=== PATIENT | female | born 1995 | race Caucasian/White ===

== ENCOUNTER 2017-08-06 14:56 | Emergency (ER) | payer OTHER ==
[~2017-08-06 14:56] MED LIST: HYDR-4309 PO; PENI-24 PO
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
[2017-08-06] MEDS ORDERED: METHOCARBAMOL 500 MG TAB PO ONE (15:30)
[2017-08-06] MEDS ORDERED: IBUPROFEN 600 MG TAB PO ONE (15:30)
[2017-08-06 16:00] VITALS: BP 120/65
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
[2017-08-06] MEDS ORDERED: METH-543 PO (16:26)
== END 2017-08-06 16:00 | disposition home or self-care (01) ==
LOC: ER 15:14
DX: S16.1XXA Strain of muscle, fascia and tendon at neck level, initial encounter (principal); M62.830 Muscle spasm of back; M54.5 Low back pain; V89.2XXA Person injured in unspecified motor-vehicle accident, traffic, initial encounter
CPT/HCPCS: 72040; 72100; 81025; 99283

== ENCOUNTER 2018-11-29 21:34 | Emergency (ER) | payer OTHER ==
[~2018-11-29 21:34] MED LIST changes: -HYDR-4309 PO; +HYDR-653 PO; +METH-543 PO
[2018-11-29 21:36] VITALS: BP 122/78
--- NOTE | 2018-11-29 21:36 | ER Report ---
History and Physical Time Seen By MD: 21:32 HPI/ROS CHIEF COMPLAINT: Not feeling well 2 weeks, vomiting, rash dry heaves HISTORY OF PRESENT ILLNESS: 23-year-old female presents ambulatory to the ER not feeling well for 2 weeks. Tonight she vomited several times. She is taking spironolactone for acne prescribed by her director clinical applications. Patient notes some subjective fevers by feeling hot all the time. She notes no diarrhea or dysuria. Her last pressure. Is unsure. She did take a home test which was negative. [place] active and not using any sort of protection. Patient notes hyperventilation with vomiting and bilateral hand and foot numbness. Patient notes some chest pain and dizziness. She's not had actual syncope. REVIEW OF SYSTEMS: Respiratory: No cough, no dyspnea. Cardiovascular: No chest pain, no palpitations. Gastrointestinal: No vomiting, no abdominal pain. Musculoskeletal: No back pain. Allergies: Coded Allergies: No Known Drug Allergies (Unverified , 11/29/18) Home Meds Active Scripts Ondansetron Hcl (ZOFRAN) 4 Mg Tablet, 4 MG PO Q6H PRN for NAUSEA/VOMITING, #10 Prov:TAMIKO CORBETT DO 11/29/18 Discontinued Scripts Methocarbamol (ROBAXIN-750) 750 Mg Tablet, 1500 MG PO Q8H PRN for MUSCLE SPASMS, #28 TAB Prov:MALENA CHAMBERS V DO 08/06/17 Reviewed Nurses Notes: Yes Old Medical Records Reviewed: Yes Hx Smoking: No Hx Alcohol Use: Yes Constitutional Vital Sign - Last 24 Hours 11/29/18 11/29/18 11/29/18 11/29/18 21:36 22:04 22:19 22:34 Pulse ??? 84 82 B/P (MAP) 122/78 (93) Pulse Ox 71 96 98 Physical Exam General Appearance: The patient is alert, has no immediate need for airway protection and no current signs of toxicity. Vital signs stable, afebrile, pu lse ox normal HEENT: Pupils equal and round no injection. Oropharynx without redness or exudate, mucous. Membranes are moist Respiratory: Chest is non tender, lungs are clear to auscultation. No chest wall tenderness Cardiac: regular rate and rhythm, no murmur Gastrointestinal: Abdomen is soft and non tender, no masses, bowel sounds normal. Musculoskeletal: Neck: Neck is supple and non tender. No lymphadenopathy, no thyromegaly Extremities have full range of motion and are non tender. No edema, no calf tenderness Skin: No rashes or lesions. DIFFERENTIAL DIAGNOSIS: After history and physical exam differential diagnosis was considered for dizziness including but not limited to peripheral and central causes of vertigo, orthostatic causes including dehydration, and blood loss. Additionally, abdominal pain including but not limited to appendicitis, cholecystitis, gastritis and urinary tract infection. Medical Decision Making Data Points Result Diagram: 11/29/18214911/29/182149 Laboratory Hematology Test 11/29/18 21:50 White Blood Count 9.3 k/uL (4.5-11.0) Red Blood Count 5.28 M/uL (4.17-5.56) Hemoglobin 16.4 g/dL (12.0-16.0) H Hematocrit 47.2 % (34.0-47.0) H Mean Corpuscular Volume 89.6 fL (80.0-96.0) Mean Corpuscular Hemoglobin 31.1 pg (26.0-33.0) Mean Corpuscular Hemoglobin Concent 34.7 g/dL (32.0-36.0) Red Cell Distribution Width 13.3 % (11.5-14.5) Platelet Count 345 K/uL (150-450) Mean Platelet Volume 8.3 fL (7.2-11.1) Neutrophils (%) (Auto) 57.6 % (39.4-72.5) Lymphocytes (%) (Auto) 32.4 % (17.6-49.6) Monocytes (%) (Auto) 6.7 % (4.1-12.4) Eosinophils (%) (Auto) 2.5 % (0.4-6.7) Basophils (%) (Auto) 0.8 % (0.3-1.4) Nucleated RBC Relative Count (auto) 0.0 /100WBC Neutrophils # (Auto) 5.4 K/uL (2.0-7.4) Lymphocytes # (Auto) 3.0 K/uL (1.3-3.6) Monocytes # (Auto) 0.6 K/uL (0.3-1.0) Eosinophils # (Auto) 0.2 K/uL (0.0-0.5) Basophils # (Auto) 0.1 K/uL (0.0-0.1) Nucleated RBC Absolute Count (auto) 0.00 K/uL Chemistry Test 11/29/18 21:50 Sodium Level 136 mmol/L (137-145) Potassium Level 3.4 mmol/L (3.5-5.0) Chloride Level 102 mmol/L (98-107) Carbon Dioxide Level 23 mmol/L (22-31) Blood Urea Nitrogen 10 mg/dl (7-18) Creatinine 0.80 mg/dl (0.52-1.04) Glomerular Filtration Rate Calc > 60.0 Random Glucose 84 mg/dl (75-110) Calcium Level 9.5 mg/dl (8.4-10.2) Total Bilirubin 1.0 mg/dl (0.2-1.3) Aspartate Amino Transf (AST/SGOT) 29 U/L (0-35) Alanine Aminotransferase (ALT/SGPT) 44 U/L (0-56) Alkaline Phosphatase 67 U/L (0-126) Troponin I < 0.012 ng/ml Total Protein 8.1 g/dl (6.3-8.2) Albumin 4.9 g/dl (3.5-5.0) Amylase Level 74 U/L (0-110) Lipase 124 U/L (23-300) Human Chorionic Gonadotropin, Qual Negative (NEGATIVE) Coagulation Test 11/29/18 21:50 D-Dimer Quantitative (PE/DVT) < 0.27 ug/ml (0-0.50) Urinalysis Test 11/29/18 21:36 Urine Color Felicia Urine Clarity Clear Urine pH 5.0 pH (4.8-9.5) Urine Specific [place] 1.028 Urine Protein Negative mg/dL (NEGATIVE) Urine Glucose (UA) Negative mg/dL (NEGATIVE) Urine Ketones 20 mg/dL (NEGATIVE) Urine Blood Negative (NEGATIVE) Urine Nitrite Negative (NEGATIVE) Urine Bilirubin Negative (NEGATIVE) Urine Urobilinogen Negative mg/dL (0.2-1.9) Urine Leukocyte Esterase Negative (NEGATIVE) Urine RBC 1 /HPF (0-2/HPF) Urine WBC 3 /HPF (0-5/HPF) Urine Squamous Epithelial Cells Many /LPF (</=FEW) Urine Bacteria Negative /HPF (NONE-FEW) Urine Mucus Few /HPF (NONE-FEW) EKG/Imaging EKG Interpretation 12 lead EK Rhythm: Normal sinus rhythm with sinus arrhythmia [place]: normal QRS: normal, inferior Q waves of questional significance. ST segments: normal ED Course/Re-evaluation Clinical Indication for ER IV: IV Access ED Course Patient was admitted to an examination room. H&P was done. The differential diagnoses was considered. Patient with dizziness. A peripheral IV was established. Diagnostic bloods were drawn. Patient with nausea, was given Zofran 4 mg sublingual. An EKG was performed which was unremarkable. Other diagnostic studies were performed which were unremarkable. Patient was reassured that her studies were normal. She has acute vertigo with head movement. She's advised to take meclizine 25 mg at 3 times a day for dizziness. She is advised to follow-up with her primary care if unimproved in 3-5 days. Decision to Disposition Date: Nov 29, 2018 Decision to Disposition Time: 22:35 Depart Departure Latest Vital Signs Vital Signs Date Time Temp Pulse Resp B/P (MAP) Pulse Ox O2 Delivery O2 Flow Rate FiO2 11/29/18 22:34 82 98 11/29/18 21:36 122/78 (93) Impression: Primary Impression: Nausea & vomiting Additional Impression: Fatigue Condition: Improved Disposition: HOME OR SELF-CARE Referrals: DORON PATTON MD, FARRUKH MD [facility] Ondansetron Hcl (ZOFRAN) 4 Mg Tablet 4 MG PO Q6H PRN for NAUSEA/VOMITING, #10 Prov: TAMIKO CORBETT DO 11/29/18 Patient Instructions: Acute Nausea and Vomiting (ED), Fatigue (ED) Additional Instructions: Use meclizine 25 mg every 6-8 hours as needed for nausea or dizziness Follow-up with primary care if unimproved in 3-5 days Problem Qualifiers Primary Impression: Nausea & vomiting Vomiting type: unspecified Vomiting Intractability: unspecified Qualified Codes: R11.2 - Nausea with vomiting, unspecified Additional Impression: Fatigue Fatigue type: unspecified Qualified Codes: R53.83 - Other fatigue TAMIKO CORBETT DO Nov 29, 2018 21:36
[2018-11-29] MEDS ORDERED: ONDANSETRON 4 MG ODT TABDP SL ONE (21:50)
[2018-11-29 22:01] LABS: PLATELET COUNT, AUTOMATED 345 K/uL (150-450)
--- NOTE | 2018-11-29 22:16 | EKG ---
FACILITY: [facility] PATIENT NAME: JALEN KAY : [id number] MR: [id number] V: [id number] EXAM DATE: ORDERING PHYSICIAN: TAMIKO CORBETT TECHNOLOGIST: LINO Test Reason : DIZZY NEAR SYNCOPE Blood Pressure : / mmHG Vent. Rate : 073 BPM Atrial Rate : 073 BPM P-R Int : 146 ms QRS Dur : 092 ms QT Int : 384 ms P-R-T Axes : 009 004 -03 degrees QTc Int : 423 ms Normal sinus rhythm with sinus arrhythmia Inferior infarct , age undetermined Abnormal ECG No previous ECGs available Confirmed by Nathaniel Rolon ([id number]) on 11/30/2018 7:16:22 AM Referred By: Confirmed By:Nathaniel Mckenzie
[2018-11-29] MEDS ORDERED: ONDA4TAB97 PO (22:45)
== END 2018-11-29 22:44 | disposition home or self-care (01) ==
LOC: ER 21:56
DX: R11.2 Nausea with vomiting, unspecified (principal); R53.83 Other fatigue
CPT/HCPCS: 81001; 82150; 83690; 84484; 84703; 85025; 85379; 93005; 99283; S0119; 82040; 82247; 82310; 82374; 82435; 82565; 82947; 84075; 84132; 84155; 84295; 84450; 84460; 84520